=== PATIENT | male | born 1970 | race Caucasian/White ===

== ENCOUNTER 2017-03-10 11:44 | Emergency (ER) | payer OTHER ==
[~2017-03-10] VITALS: Ht 172.7 cm; Wt 122.7 kg
[2017-03-10 11:48] VITALS: TEMP 98.6
[2017-03-10 12:29] LABS: BASO # 0.1 (0.0-0.2); BASO % 0.5 % (0.0-2.0); EOS # 0.2 (0.0-0.7); EOS % 1.9 % (0-4.0); GRAN # 7.9 (1.4-6.5); GRAN % 74.1 % (42.2-75.2); HEMOGLOBIN 14.5 g/dl (13.5-18.0); LYMPH # 1.6 (1.2-3.4); LYMPH % 15.4 % (20.0-51.0); MEAN CELL VOLUME 87 fl (80.0-100.0); MEAN CORPUSCULAR HEMOGLOBIN 31 pg (27.0-31.0); MEAN CORPUSCULAR HGB CONC 35 g/dl (33.0-37.0); MEAN PLATELET VOLUME 11.2 fl (7.4-10.4); MONO # 0.8 (0.1-0.6); MONO % 7.4 % (1.7-9.3); PLATELET COUNT 222 K/mm3 (130-400); RED BLOOD COUNT 4.73 M/mm3 (4.20-5.60); WHITE BLOOD COUNT 10.7 K/mm3 (4.8-10.8)
[2017-03-10 12:35] LABS: PROTHROMBIN TIME 11.3 SECONDS (9.7-12.8)
[2017-03-10] MEDS ORDERED: ASPIRIN 81M81 MG/TA2 PO (12:35)
[2017-03-10] MEDS ORDERED: SINGULAIR 110 MG/TAB PO (12:36)
[2017-03-10] MEDS ORDERED: ZYRTEC 10MG10 MG PO (12:36)
[2017-03-10] MEDS ORDERED: LIPITOR 40MG TA40 MG PO (12:36)
[2017-03-10] MEDS ORDERED: VITAMIN D 400400 IU PO (12:37)
[2017-03-10] MEDS ORDERED: ZOLOFT 100MG100 MG PO (12:37)
[2017-03-10] MEDS ORDERED: 00186-0372-20 IH (12:37)
[2017-03-10 12:38] LABS: PARTIAL THROMBOPLASTIN TIME 29.5 SECONDS (26.0-37.0)
[2017-03-10 12:40] LABS: D-DIMER < 200.00 ng/mLDDu (200-230)
[2017-03-10 12:49] LABS: B-TYPE NATRIURETIC PEPTIDE 30 pg/mL (0-125); TROPONIN-I < 0.012 ng/mL (0.000-0.034)
[2017-03-10 13:22] LABS: ADJUSTED CALCIUM 9.1 mg/dL (8.4-10.2); ALBUMIN 4.3 gm/dL (3.5-5.0); BILIRUBIN,TOTAL 0.8 mg/dL (0.0-1.0); CALCIUM 9.3 mg/dL (8.4-10.2); POTASSIUM 3.9 mmol/L (3.4-5.0); TOTAL PROTEIN 7.3 gm/dL (6.4-8.2)
[2017-03-10 13:27] LABS: CREATININE, serum 0.75 mg/dL (0.66-1.25)
[2017-03-10 13:35] LABS: AMYLASE 43 U/L (30-110); LIPASE 41 U/L (23-300)
[2017-03-10 15:06] VITALS: BP 125/56; PULSE 76
== END 2017-03-10 15:06 | disposition home or self-care (01) ==
LOC: COL.ER 11:44
PROVIDERS: Emergency Medicine
DX: R07.89 Other chest pain (principal); F17.210 Nicotine dependence, cigarettes, uncomplicated; Z79.02 Long term (current) use of antithrombotics/antiplatelets; Z98.890 Other specified postprocedural states
CPT/HCPCS: J2270; J2765; J7030; J7050; Q9967

== ENCOUNTER 2019-02-18 13:01 | Emergency (ER) | payer OTHER ==
[~2019-02-18] VITALS: Ht 170.2 cm; Wt 118.2 kg
[~2019-02-18 13:01] MED LIST: 00186-0372-20 IH; ASPIRIN 81M81 MG/TA2 PO; LIPITOR 40MG TA40 MG PO; MASON NATURAL2000 IU PO; MELATONIN1 MG PO; NEURONTIN300 MG/CAP PO; PRILOSEC 20MG20 MG PO; PROZAC 20MG20 MG PO; SINGULAIR 110 MG/TAB PO; VITAMIN D 400400 IU PO; ZOLOFT 100MG100 MG PO; ZYRTEC 10MG10 MG PO
[2019-02-18 13:07] VITALS: BP 150/79
[2019-02-18] MEDS ORDERED: MUCINEX 60600 MG/TA1 PO (13:32)
[2019-02-18 14:21] LABS: BASO % 0.5 % (0.0-2.0); EOS # 0.1 (0.0-0.7); EOS % 0.8 % (0-4.0); GRAN # 4.8 (1.4-6.5); HEMATOCRIT 39.7 % (42.0-52.0); HEMOGLOBIN 13.5 g/dl (13.5-18.0); LYMPH # 0.6 (1.2-3.4); MEAN CELL VOLUME 87 fl (80.0-100.0); MEAN CORPUSCULAR HEMOGLOBIN 30 pg (27.0-31.0); MEAN CORPUSCULAR HGB CONC 34 g/dl (33.0-37.0); MEAN PLATELET VOLUME 11.3 fl (7.4-10.4); MONO # 0.9 (0.1-0.6); MONO % 14.2 % (1.7-9.3); PLATELET COUNT 166 K/mm3 (130-400); RED BLOOD COUNT 4.54 M/mm3 (4.20-5.60); REDCELL DISTRIBUTION WIDTH-CV 13.5 % (11.5-14.5)
[2019-02-18 14:33] LABS: ALBUMIN 4.1 gm/dL (3.5-5.0); BILIRUBIN,TOTAL 0.7 mg/dL (0.0-1.0); CALCIUM 8.7 mg/dL (8.4-10.2); CREATININE, serum 0.9 (0.66-1.25); POTASSIUM 3.8 mmol/L (3.4-5.0)
[2019-02-18] MEDS ORDERED: TESSALON P100 MG/CAP PO (15:14)
[2019-02-18] MEDS ORDERED: TAMIFLU 75MG75 MG PO (15:14)
[2019-02-18 15:33] VITALS: PULSE 96; TEMP 98.2
[2019-02-20] MEDS ORDERED: TESSALON P100 MG/CAP PO (09:31)
== END 2019-02-18 15:33 | disposition home or self-care (01) ==
LOC: COL.ER 13:01
PROVIDERS: Emergency Medicine
DX: J10.1 Influenza due to other identified influenza virus with other respiratory manifestations (principal); E78.00 Pure hypercholesterolemia, unspecified; M79.7 Fibromyalgia; Z79.82 Long term (current) use of aspirin; Z79.51 Long term (current) use of inhaled steroids
CPT/HCPCS: J1885; J2405; J7030

== ENCOUNTER 2019-02-22 10:18 | Emergency (ER) | payer OTHER ==
[~2019-02-22] VITALS: Ht 170.2 cm; Wt 116.8 kg
[~2019-02-22 10:18] MED LIST changes: +MUCINEX 60600 MG/TA1 PO; +TAMIFLU 75MG75 MG PO; +TESSALON P100 MG/CAP PO
[2019-02-22 10:35] VITALS: BP 131/88; TEMP 98.6
[2019-02-22] MEDS ORDERED: DOXYCYCLINE 10100 MG PO (11:31)
[2019-02-22 12:01] VITALS: PULSE 76
== END 2019-02-22 12:01 | disposition home or self-care (01) ==
LOC: COL.ER 10:18
DX: J18.1 Lobar pneumonia, unspecified organism (principal); F17.210 Nicotine dependence, cigarettes, uncomplicated; G43.909 Migraine, unspecified, not intractable, without status migrainosus; Z88.0 Allergy status to penicillin; Z79.82 Long term (current) use of aspirin

== ENCOUNTER → 2019-09-20 | Outpatient (CLI) | payer OTHER ==
[~2019-09-20] MED LIST changes: +DOXYCYCLINE 10100 MG PO
== END ==
LOC: COL.RAD 07:42
DX: G51.32 Clonic hemifacial spasm, left (principal)
CPT/HCPCS: A9585

== ENCOUNTER 2021-03-18 21:57 | Emergency (ER) | payer OTHER ==
[2021-03-18 22:04] VITALS: TEMP 97.9
[2021-03-18] MEDS ORDERED: DOXYCYCLINE 10100 MG PO (23:22)
[2021-03-18] MEDS ORDERED: PREDNISONE20 MG PO (23:22)
[2021-03-19 00:04] VITALS: BP 141/93; PULSE 104
== END 2021-03-19 00:04 | disposition home or self-care (01) ==
LOC: COL.ER 21:57
DX: J45.901 Unspecified asthma with (acute) exacerbation (principal); M79.7 Fibromyalgia; Z79.899 Other long term (current) drug therapy; Z20.822 Contact with and (suspected) exposure to COVID-19
CPT/HCPCS: J7512

== ENCOUNTER 2021-09-21 14:38 | Emergency (ER) | payer OTHER ==
[~2021-09-21] VITALS: Ht 170.2 cm; Wt 126.8 kg
[~2021-09-21 14:38] MED LIST changes: +PREDNISONE20 MG PO
[2021-09-21 14:48] VITALS: TEMP 97
[2021-09-21 17:19] VITALS: BP 114/82; PULSE 86
== END 2021-09-21 17:19 | disposition home or self-care (01) ==
LOC: COL.ER 14:38
DX: U07.1 COVID-19 (principal); J45.909 Unspecified asthma, uncomplicated; E66.9 Obesity, unspecified; Z28.310 Unvaccinated for COVID-19
CPT/HCPCS: Q0222